=== PATIENT | female | born 1990 | race Caucasian/White ===

== ENCOUNTER 2018-02-08 23:09 | Emergency (ER) | payer OTHER ==
[2018-02-08 23:15] VITALS: Ht 157.5 cm
[2018-02-09 03:04] VITALS: BP 129/83
== END 2018-02-09 03:04 | disposition home or self-care (01) ==
LOC: ED 23:09
DX: T25.232A Burn of second degree of left toe(s) (nail), initial encounter (principal); S91.202A Unspecified open wound of left great toe with damage to nail, initial encounter; S91.201A Unspecified open wound of right great toe with damage to nail, initial encounter; X58.XXXA Exposure to other specified factors, initial encounter; Y93.41 Activity, dancing; Y92.89 Other specified places as the place of occurrence of the external cause; Y99.8 Other external cause status

== ENCOUNTER 2018-02-12 11:44 | Emergency (ER) | payer OTHER ==
[~2018-02-12] VITALS: Ht 157.5 cm; Wt 65.3 kg
[2018-02-12 14:34] VITALS: BP 120/56
== END 2018-02-12 14:34 | disposition home or self-care (01) ==
LOC: ED 11:44
DX: L08.9 Local infection of the skin and subcutaneous tissue, unspecified (principal)
CPT/HCPCS: J2001

== ENCOUNTER 2018-02-25 10:53 | Emergency (ER) | payer OTHER ==
[~2018-02-25] VITALS: Ht 154.9 cm; Wt 65.3 kg
[2018-02-25 11:27] VITALS: BP 110/58; Ht 154.9 cm; Wt 65.3 kg
== END 2018-02-25 13:15 | disposition home or self-care (01) ==
LOC: ED 10:53
DX: S91.201A Unspecified open wound of right great toe with damage to nail, initial encounter (principal); X58.XXXA Exposure to other specified factors, initial encounter; Y93.89 Activity, other specified; Y92.89 Other specified places as the place of occurrence of the external cause; Y99.8 Other external cause status
CPT/HCPCS: J2001

== ENCOUNTER 2018-10-03 19:52 | Emergency (ER) | payer OTHER ==
[~2018-10-03] VITALS: Ht 157.5 cm; Wt 71.2 kg
[2018-10-03 20:21] VITALS: BP 139/77; Ht 157.5 cm; Wt 71.2 kg
== END 2018-10-03 22:16 | disposition home or self-care (01) ==
LOC: ED 19:52
DX: J06.9 Acute upper respiratory infection, unspecified (principal)

== ENCOUNTER 2019-02-07 12:16 | Emergency (ER) | payer OTHER ==
[~2019-02-07] VITALS: Ht 157.5 cm; Wt 69.9 kg
[2019-02-07 12:30] VITALS: Ht 157.5 cm; Wt 69.9 kg
[2019-02-07 13:33] VITALS: BP 128/67
== END 2019-02-07 13:33 | disposition home or self-care (01) ==
LOC: ED 12:16
DX: S80.211A Abrasion, right knee, initial encounter (principal); L08.9 Local infection of the skin and subcutaneous tissue, unspecified; W18.30XA Fall on same level, unspecified, initial encounter; Y93.89 Activity, other specified; Y92.89 Other specified places as the place of occurrence of the external cause; Y99.8 Other external cause status

== ENCOUNTER 2019-04-10 15:00 | Emergency (ER) | payer OTHER ==
[~2019-04-10] VITALS: Ht 157.5 cm; Wt 73.0 kg
[2019-04-10 15:11] VITALS: Ht 157.5 cm; Wt 73.0 kg
[2019-04-10 17:58] VITALS: BP 113/72
== END 2019-04-10 17:58 | disposition home or self-care (01) ==
LOC: ED 15:00
DX: S90.211A Contusion of right great toe with damage to nail, initial encounter (principal); X58.XXXA Exposure to other specified factors, initial encounter; Y93.41 Activity, dancing; Y92.89 Other specified places as the place of occurrence of the external cause; Y99.8 Other external cause status

== ENCOUNTER 2019-04-27 09:36 | Emergency (ER) | payer OTHER ==
[~2019-04-27] VITALS: Ht 157.5 cm; Wt 75.3 kg
[2019-04-27 09:39] VITALS: Ht 157.5 cm; Wt 75.3 kg
[2019-04-27 10:15] VITALS: BP 118/79
== END 2019-04-27 10:15 | disposition home or self-care (01) ==
LOC: ED 09:36
DX: S61.451A Open bite of right hand, initial encounter (principal); W55.01XA Bitten by cat, initial encounter; Y93.89 Activity, other specified; Y92.89 Other specified places as the place of occurrence of the external cause; Y99.8 Other external cause status